=== PATIENT | male | born 1960 | race Caucasian/White ===

== ENCOUNTER 2018-02-24 15:06 | Inpatient (IN) | payer BC ==
[2018-02-24] VITALS (381 sets, daily range): BP systolic 96–105; BP diastolic 45–81; PULSE 118–120; TEMP 97–97.8; O2SAT 71–100
[~2018-02-24] VITALS: Ht 182.9 cm; Wt 146.5 kg
[2018-02-24 17:58] LABS: BASO # 0.1 (0.0-0.2); BASO % 0.5 % (0.0-2.0); EOS % 0.3 % (0-4.0); GRAN # 7.4 (1.4-6.5); GRAN % 65.4 % (42.2-75.2); HEMATOCRIT 42.3 % (42.0-52.0); HEMOGLOBIN 14.4 g/dl (13.5-18.0); LYMPH # 3.1 (1.2-3.4); LYMPH % 26.9 % (20.0-51.0); MEAN CELL VOLUME 91 fl (80.0-100.0); MEAN CORPUSCULAR HEMOGLOBIN 31 pg (27.0-31.0); MEAN CORPUSCULAR HGB CONC 34 g/dl (33.0-37.0); MEAN PLATELET VOLUME 10.4 fl (7.4-10.4); MONO # 0.7 (0.1-0.6); MONO % 6.5 % (1.7-9.3); PLATELET COUNT 172 K/mm3 (130-400); RED BLOOD COUNT 4.65 M/mm3 (4.20-5.60); REDCELL DISTRIBUTION WIDTH-CV 12.7 % (11.5-14.5)
[2018-02-24 18:04] LABS: INR 1.4 (0.8-3.0); PROTHROMBIN TIME 15.9 SECONDS (9.7-12.8)
[2018-02-24 18:05] LABS: CALCIUM 9.1 mg/dL (8.4-10.2); CREATININE, serum 0.74 mg/dL (0.66-1.25)
[2018-02-24 18:27] LABS: TROPONIN-I 0.864 ng/mL (0.000-0.034)
[2018-02-24] MEDS ORDERED: MULTI VITAMINS1 TAB PO (19:46)
[2018-02-24] MEDS ORDERED: PROBIOTIC FORMU1 CAP PO (19:47)
[2018-02-24] MEDS ORDERED: DOXYCYCLINE 10100 MG (19:47)
[2018-02-25] VITALS (1191 sets, daily range): BP systolic 118–141; BP diastolic 66–83; PULSE 96–114; TEMP 97.2–98.5; O2SAT 64–100
[2018-02-25 05:43] LABS: ARTERIAL BLD GAS O2 SATURATION 95.2 % (92-100); ARTERIAL BLD GAS TCO2 CT 21.9; ARTERIAL BLOOD GAS BASE EXCESS -2.4 (-2-2); ARTERIAL BLOOD GAS HCO3 20.9 meq/L (22-26); ARTERIAL BLOOD GAS PCO2 32.2 mmHg (35-45); ARTERIAL BLOOD GAS PO2 76.3 mmHg (80-100); ARTERIAL BLOOD GAS pH 7.43 (7.35-7.45)
[2018-02-25 06:02] LABS: ALBUMIN 3.6 gm/dL (3.5-5.0); BILIRUBIN,TOTAL 0.9 mg/dL (0.0-1.0); CALCIUM 8.8 mg/dL (8.4-10.2); CREATININE, serum 0.75 mg/dL (0.66-1.25); MAGNESIUM 1.8 mg/dL (1.6-2.3); POTASSIUM 3.9 mmol/L (3.4-5.0); TOTAL PROTEIN 7.2 gm/dL (6.4-8.2)
[2018-02-25 06:06] LABS: HEMATOCRIT 40.2 % (42.0-52.0); HEMOGLOBIN 13.6 g/dl (13.5-18.0); MEAN CELL VOLUME 92 fl (80.0-100.0); MEAN CORPUSCULAR HEMOGLOBIN 31 pg (27.0-31.0); MEAN CORPUSCULAR HGB CONC 34 g/dl (33.0-37.0); MEAN PLATELET VOLUME 10.9 fl (7.4-10.4); PLATELET COUNT 172 K/mm3 (130-400); RED BLOOD COUNT 4.37 M/mm3 (4.20-5.60); REDCELL DISTRIBUTION WIDTH-CV 12.8 % (11.5-14.5)
[2018-02-25 06:15] LABS: TROPONIN-I 1.03 ng/mL (0.000-0.034)
[2018-02-25 06:31] LABS: BAND 5 % (0-10); EOSINOPHIL 1 % (0-4); LYMPHOCYTE 30 % (20.0-51.0); NEUTROPHILS 61 % (42.0-75.2); PLATELET ESTIMATE NORMAL (NORMAL)
[2018-02-25 19:27] LABS: COAG INR 1.5 (0.9-1.2)
[2018-02-26] VITALS (1317 sets, daily range): BP systolic 117–138; BP diastolic 77–94; PULSE 91–111; TEMP 97–98.1; O2SAT 36–100
[2018-02-27] VITALS (892 sets, daily range): BP systolic 123–147; BP diastolic 68–86; PULSE 83–113; TEMP 97–98.1; O2SAT 81–100
[2018-02-27 05:16] LABS: HEMOGLOBIN 12.5 g/dl (13.5-18.0); MEAN CELL VOLUME 90 fl (80.0-100.0); MEAN CORPUSCULAR HEMOGLOBIN 31 pg (27.0-31.0); MEAN CORPUSCULAR HGB CONC 35 g/dl (33.0-37.0); MEAN PLATELET VOLUME 10.1 fl (7.4-10.4); PLATELET COUNT 151 K/mm3 (130-400); REDCELL DISTRIBUTION WIDTH-CV 12.5 % (11.5-14.5)
[2018-02-27 05:18] LABS: HEMATOCRIT 35.8 % (42.0-52.0)
[2018-02-27 05:40] LABS: CALCIUM 8.7 mg/dL (8.4-10.2); CREATININE, serum 0.6 mg/dL (0.66-1.25); MAGNESIUM 1.9 mg/dL (1.6-2.3); POTASSIUM 3.8 mmol/L (3.4-5.0)
[2018-02-27 05:41] LABS: BAND 4 % (0-10); EOSINOPHIL 4 % (0-4); LYMPHOCYTE 27 % (20.0-51.0); NEUTROPHILS 60 % (42.0-75.2); PLATELET ESTIMATE NORMAL (NORMAL)
[2018-02-27 05:56] LABS: TROPONIN-I 0.257 ng/mL (0.000-0.034)
[2018-02-27 08:25] LABS: FACTOR V LEIDEN MUTATION B Negative (Negative); PARTIAL THROMBLASTIN TIME 27.6 seconds (25.0-35.0); PT G20210A MUTATION B Negative (Negative)
[2018-02-28 04:07] VITALS: BP 128/61; PULSE 76; TEMP 97.3
[2018-02-28 08:28] LABS: BASO # 0.1 (0.0-0.2); BASO % 0.8 % (0.0-2.0); EOS # 0.3 (0.0-0.7); GRAN # 4.1 (1.4-6.5); GRAN % 61.5 % (42.2-75.2); HEMATOCRIT 37.6 % (42.0-52.0); HEMOGLOBIN 12.7 g/dl (13.5-18.0); LYMPH # 1.8 (1.2-3.4); LYMPH % 26.5 % (20.0-51.0); MEAN CELL VOLUME 92 fl (80.0-100.0); MEAN CORPUSCULAR HEMOGLOBIN 31 pg (27.0-31.0); MEAN CORPUSCULAR HGB CONC 34 g/dl (33.0-37.0); MEAN PLATELET VOLUME 10.3 fl (7.4-10.4); MONO # 0.4 (0.1-0.6); MONO % 5.9 % (1.7-9.3); PLATELET COUNT 177 K/mm3 (130-400); RED BLOOD COUNT 4.07 M/mm3 (4.20-5.60); REDCELL DISTRIBUTION WIDTH-CV 12.8 % (11.5-14.5)
[2018-02-28 08:33] LABS: CALCIUM 8.9 mg/dL (8.4-10.2); CREATININE, serum 0.63 mg/dL (0.66-1.25); POTASSIUM 3.9 mmol/L (3.4-5.0)
[2018-02-28 08:47] LABS: PROTEIN C ACTIVITY 108 % (70-150)
[2018-02-28 08:51] VITALS: BP 131/70; PULSE 94; TEMP 98.4
[2018-02-28 09:32] LABS: ANTI-THROMBIN III 86 % (72-128)
[2018-02-28 11:38] VITALS: BP 119/61; PULSE 100; TEMP 98.1
[2018-02-28 14:06] LABS: LUPUS ANTICOAGULANT INR 1.5 (())
[2018-02-28 15:39] VITALS: BP 122/65; PULSE 111; TEMP 98.7
[2018-02-28 20:20] VITALS: BP 116/63; PULSE 104; TEMP 98.6
[2018-02-28 23:37] VITALS: BP 124/82; PULSE 83
[2018-03-01 03:37] VITALS: BP 129/76; PULSE 81
[2018-03-01 06:23] LABS: BASO # 0.1 (0.0-0.2); BASO % 0.9 % (0.0-2.0); EOS # 0.4 (0.0-0.7); EOS % 5.9 % (0-4.0); GRAN # 4.1 (1.4-6.5); GRAN % 59.1 % (42.2-75.2); HEMATOCRIT 39.1 % (42.0-52.0); HEMOGLOBIN 13.1 g/dl (13.5-18.0); LYMPH # 1.9 (1.2-3.4); LYMPH % 27.1 % (20.0-51.0); MEAN CELL VOLUME 92 fl (80.0-100.0); MEAN CORPUSCULAR HEMOGLOBIN 31 pg (27.0-31.0); MEAN CORPUSCULAR HGB CONC 34 g/dl (33.0-37.0); MEAN PLATELET VOLUME 10.6 fl (7.4-10.4); MONO # 0.4 (0.1-0.6); MONO % 6.4 % (1.7-9.3); PLATELET COUNT 213 K/mm3 (130-400); RED BLOOD COUNT 4.27 M/mm3 (4.20-5.60); REDCELL DISTRIBUTION WIDTH-CV 12.7 % (11.5-14.5)
[2018-03-01 06:24] LABS: INR 1.3 (0.8-3.0); PROTHROMBIN TIME 15.4 SECONDS (9.7-12.8)
[2018-03-01 06:33] LABS: CREATININE, serum 0.64 mg/dL (0.66-1.25); POTASSIUM 3.9 mmol/L (3.4-5.0)
[2018-03-01 08:29] VITALS: BP 143/75; PULSE 98; TEMP 98.1
[2018-03-01] MEDS ORDERED: LOVENOX150 MG/ML SQ (11:25)
[2018-03-01] MEDS ORDERED: COUMADIN 1MG1 MG/TAB PO (11:26)
[2018-03-01] MEDS ORDERED: COUMADIN 5MG5 MG/TAB PO (11:27)
[2018-03-01 11:32] VITALS: BP 123/71; PULSE 98; TEMP 97.8
[2018-03-01 16:45] VITALS: BP 120/71; PULSE 91; TEMP 98.3
== END 2018-03-01 19:30 | disposition home or self-care (01) | DRG 175 ==
LOC: IMCU 15:06 → ICU 15:20 → MEDICAL 02-27 20:52
PROVIDERS: Internal Medicine; Internal Medicine Pulmonary Disease; Nurse Practitioner; Nurse Practitioner Family
PROC: 05H533Z Insertion of Infusion Device into Right Subclavian Vein, Percutaneous Approach (ICD-10-PCS; principal; 2018-02-24)
DX: I26.99 Other pulmonary embolism without acute cor pulmonale (principal); J96.02 Acute respiratory failure with hypercapnia; J96.01 Acute respiratory failure with hypoxia; I82.4Z2 Acute embolism and thrombosis of unspecified deep veins of left distal lower extremity; E87.2 Acidosis; Z68.41 Body mass index [BMI] 40.0-44.9, adult; R73.9 Hyperglycemia, unspecified; R19.7 Diarrhea, unspecified; G47.33 Obstructive sleep apnea (adult) (pediatric); E66.01 Morbid (severe) obesity due to excess calories
CPT/HCPCS: 99232-AI; 99233-AI; 99239; J1650; J7030

== ENCOUNTER → 2018-05-19 | Outpatient (CLI) | payer BC ==
[~2018-05-19] MED LIST: COUMADIN 1MG1 MG/TAB PO; COUMADIN 5MG5 MG/TAB PO; DOXYCYCLINE 10100 MG; LOVENOX150 MG/ML SQ; MULTI VITAMINS1 TAB PO; PROBIOTIC FORMU1 CAP PO
== END ==
LOC: COL.RAD 12:36
DX: M47.812 Spondylosis without myelopathy or radiculopathy, cervical region (principal)

== ENCOUNTER → 2018-06-09 | Outpatient (CLI) | payer BC | LOC: COL.LAB 13:43 | DX: Z01.89 Encounter for other specified special examinations (principal) ==

== ENCOUNTER → 2022-05-04 | Outpatient (CLI) | payer BC ==
[~2022-05-04] VITALS: Ht 182.9 cm; Wt 120.0 kg
[2022-05-04 07:26] VITALS: BP 146/86; PULSE 96; TEMP 98.1
[2022-05-04 08:25] VITALS: BP 138/68; PULSE 80
--- NOTE | 2022-05-04 08:45 | NUR ---
PT DISCHARGED VIA W/C TO TRUCK WITH DAUGHTER
== END ==
LOC: COL.RAD 06:45
DX: R19.09 Other intra-abdominal and pelvic swelling, mass and lump (principal)

== ENCOUNTER 2024-06-12 11:46 | Observation (INO) | payer BC ==
[~2024-06-12] VITALS: Ht 177.8 cm; Wt 109.9 kg
[2024-06-12 13:02] LABS: BASO % 0.8 % (0.0-2.0); EOS # 0.1 K/mm3 (0.0-0.7); GRAN # 3.4 K/mm3 (1.4-6.5); GRAN % 67.3 % (42.2-75.2); HEMOGLOBIN 12.2 g/dl (13.5-18.0); LYMPH # 1.3 K/mm3 (1.2-3.4); LYMPH % 24.8 % (20.0-51.0); MEAN CELL VOLUME 96 fl (80.0-100.0); MEAN CORPUSCULAR HEMOGLOBIN 32 pg (27-31); MEAN CORPUSCULAR HGB CONC 33 g/dl (33.0-37.0); MONO # 0.3 K/mm3 (0.1-0.6); MONO % 4.9 % (1.7-9.3); PLATELET COUNT 144 K/mm3 (130-400); RED BLOOD COUNT 3.83 M/mm3 (4.20-5.60); REDCELL DISTRIBUTION WIDTH-CV 12.9 % (11.5-14.5)
[2024-06-12 13:08] LABS: HEMATOCRIT 36.6 % (42.0-52.0)
[2024-06-12 13:23] LABS: ALANINE AMINOTRANSFERASE 15 U/L (0-55); ALBUMIN 3.9 g/dL (3.4-4.8); ALKALINE PHOSPHATASE 110 U/L (40-150); ANION GAP 9 mmol/L (7-16); AST,SGOT 22 U/L (5-34); BILIRUBIN,TOTAL 0.7 mg/dL (0.2-1.2); BLOOD UREA NITROGEN 35 mg/dL (8-26); CHLORIDE 109 mEq/L (98-107); CREATININE, serum 2.26 mg/dL (0.72-1.25); GLUCOSE 87 mg/dL (70-99); POTASSIUM 4.9 mEq/L (3.5-4.5); SODIUM 136 mEq/L (136-145); TOTAL PROTEIN 7.2 g/dl (6.2-8.1)
[2024-06-12 13:37] LABS: TROPONIN-I < 0.010 ng/mL (0.00-0.033)
[2024-06-12 13:51] LABS: INR 1.2 (0.8-3.0)
[2024-06-12] MEDS ORDERED: Iodixanol-320 100 ML BOTTLE IV ONE (14:17)
[2024-06-12] MEDS ORDERED: NS 100 ML IV SCH (14:18)
[2024-06-12 14:26] LABS: COLLECTION METHOD CLEAN CATCH; URINE APPEARANCE CLEAR (CLEAR/HAZY); URINE COLOR YELLOW (YELLOW)
[2024-06-12] MEDS ORDERED: NS 1,000 ML IV ONE (14:30)
[2024-06-12 14:31] LABS: PH 5.5 (5.0-8.5); URINE BLOOD 2+ (NEGATIVE); URINE GLUCOSE NEGATIVE (NEGATIVE); URINE KETONE NEGATIVE (NEGATIVE); URINE NITRATE NEGATIVE (NEGATIVE); URINE PROTEIN(semi-quant) NEGATIVE (BEGATIVE); URINE UROBILINOGEN 0.2 E.U/dL (0.2-1.0)
[2024-06-12] MEDS ORDERED: Heparin 5,000 UNITS/ML 1 ML VIAL SQ SCH (16:35)
[2024-06-12 16:45] VITALS: BP 165/88; PULSE 52; TEMP 98.2
[2024-06-12] MEDS ORDERED: amLODIPine 10 MG TAB PO ONE (16:45)
[2024-06-12] MEDS ORDERED: TYLENOL PM EXTR1 TA1 PO (16:49)
[2024-06-12] MEDS ORDERED: MOTRIN 200200 MG/TAB PO (16:50)
[2024-06-12] MEDS ORDERED: NS 1,000 ML IV SCH (17:00)
[2024-06-12] MEDS ORDERED: *Potassium Replacement Protocol MC SCH (17:00)
--- NOTE | 2024-06-12 17:19 | NUR ---
Pt. arrived to the floor. Pt. is A&OX3, assessment complete. Port to rt. chest noted, with good blood return, IV fluids running per orders. Pt. denies pain or other needs, call light within reach.
[2024-06-12] MEDS ORDERED: Ibuprofen 400 MG TAB PO ONE (17:45)
[2024-06-12 20:30] VITALS: BP_SYST 165
--- NOTE | 2024-06-12 20:30 | NUR ---
UPON SHIFT ASSESSMENT, PATIENT WAS AWAKE IN BED AND AXO X4. 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 HE DENIES DYSURIA OR SOA AT THIS TIME. CURRENT VS ARE WNL. NS RUNNING AT 75ML/HR THROUGH PORT-A-CATH IN CHEST. CALL LIGHT WITHIN REACH.
--- NOTE | 2024-06-12 22:14 | NUR ---
CALL PLACED TO [facility]. PATIENT C/O DIARRHEA. TORB FOR C-DIFF SCREENING AND CONTACT PRECAUTIONS GIVEN.
[2024-06-12 23:41] VITALS: BP 145/73; PULSE 83; TEMP 98.5
[2024-06-13] VITALS (7 sets, daily range): BP systolic 136–161; BP diastolic 80–92; PULSE 70–82; TEMP 97.7–98.3
[2024-06-13 06:34] LABS: ALBUMIN 3.6 g/dL (3.4-4.8); CALCIUM 8.8 mg/dL (8.4-10.2); CREATININE, serum 1.97 mg/dL (0.72-1.25); MAGNESIUM 1.7 mg/dL (1.6-2.6); PHOSPHOROUS 3.1 mg/dL (2.3-4.7); POTASSIUM 4.4 mEq/L (3.5-4.5)
[2024-06-13 06:42] LABS: BASO % 0.9 % (0.0-2.0); EOS # 0.2 K/mm3 (0.0-0.7); EOS % 3.6 % (0.0-4.0); GRAN # 2.5 K/mm3 (1.4-6.5); GRAN % 54.8 % (42.2-75.2); HEMOGLOBIN 12.3 g/dl (13.5-18.0); LYMPH # 1.5 K/mm3 (1.2-3.4); LYMPH % 33.4 % (20.0-51.0); MEAN CELL VOLUME 94 fl (80.0-100.0); MEAN CORPUSCULAR HEMOGLOBIN 32 pg (27-31); MEAN CORPUSCULAR HGB CONC 34 g/dl (33.0-37.0); MEAN PLATELET VOLUME 9.3 fl (7.4-10.4); MONO # 0.3 K/mm3 (0.1-0.6); MONO % 7.1 % (1.7-9.3); PLATELET COUNT 142 K/mm3 (130-400); RED BLOOD COUNT 3.89 M/mm3 (4.20-5.60); REDCELL DISTRIBUTION WIDTH-CV 12.9 % (11.5-14.5)
[2024-06-13 06:44] LABS: HEMATOCRIT 36.5 % (42.0-52.0)
--- NOTE | 2024-06-13 08:00 | NUR ---
Patient sitting up in chair, alert and oriented x 4, having breakfast. Daughter at bedside. States feeling ok this morning. Assessment completed. Getting fluids per orders. No further needs at this time. Call light within reach.
--- NOTE | 2024-06-13 09:49 | NUR ---
Patient has not had diarrhea all night or this morning. Reported to Dr. Gray who ordered to discontinued isolation prec.
--- NOTE | 2024-06-13 10:50 | NUR ---
D: Entertainment Dancer stopped by room on rounds. A: Pt was resting and content sitting in his chair. Pt's daughter was present. Pt has no needs right now. P: Entertainment Dancer informed pt that if he needed anything from the car unloader area to let his nurse know. Entertainment Dancer will follow up as needed.
[2024-06-13] MEDS ORDERED: NORVASC 10MG10 MG PO (11:22)
--- NOTE | 2024-06-13 11:25 | NUR ---
grain ii farmworker met with pt and his daughter to discuss intake information. He reports to live in [facility] with his daughter. He sees Dr. Jones for PCP needs and obtains medications from [facility] with no issues. He verified his insurance as [employer]. He reports his daughter's, Ashley [phone] and Carla are DPOA-HC. SW verified this on file. Pt reports to be independent with ADLS and uses a FWW and cane for DME. HE intends to return home upon discharge. Discharge Plan: home
--- NOTE | 2024-06-13 17:02 | NUR ---
Patient was provided with discharge information, all questions answered. Humphrey cath access was removed and flushed per protocol.
== END 2024-06-13 17:00 | disposition home or self-care (01) ==
LOC: COL.ER 11:46 → MEDICAL 15:39
PROVIDERS: Nurse Practitioner; ADMIT Internal Medicine
DX: R51.9 Headache, unspecified (principal); R06.02 Shortness of breath; I16.0 Hypertensive urgency; N17.9 Acute kidney failure, unspecified; I13.10 Hypertensive heart and chronic kidney disease without heart failure, with stage 1 through stage 4 chronic kidney disease, or unspecified chronic kidney disease; N18.9 Chronic kidney disease, unspecified; I08.0 Rheumatic disorders of both mitral and aortic valves; C85.90 Non-Hodgkin lymphoma, unspecified, unspecified site; Z86.711 Personal history of pulmonary embolism
CPT/HCPCS: G0378; J1644; J7030; Q9967